=== PATIENT | female | born 1975 ===

== ENCOUNTER 2017-12-27 05:36 | Day surgery (SDC) | payer OTHER ==
[~2017-12-27 05:36] MED LIST: CLONAZEPAM0.5 MG PO; LAMICTAL25 MG PO; RESTORIL30 M1 PO; WELLBUTRIN SR150 MG PO; ZANTAC150 MG PO
[2017-12-27] MEDS ORDERED: PERCOCET 5-3251 EACH PO (08:07)
[2017-12-27] MEDS ORDERED: RECTICARE30 GM TOP (08:07)
== END 2017-12-27 18:30 | disposition home or self-care (01) ==
LOC: CIR.AMB 05:36 → AMB-ENDOS 08:30 → CIR.AMB 08:30
DX: K64.8 Other hemorrhoids (principal); K64.4 Residual hemorrhoidal skin tags